=== PATIENT | female | born 1990 | race African-American/Black ===

== ENCOUNTER 2019-06-04 01:07 | Emergency (ER) | payer OTHER ==
[~2019-06-04] VITALS: Ht 157.5 cm; Wt 70.3 kg
[2019-06-04 01:30] VITALS: BP 146/93
--- NOTE | 2019-06-04 01:30 | NUR ---
PT C/O SOB, CHEST PAIN X4 DAYS. A/OX4 BREATHING UNLABORED AND SYMMETRICAL. 98% ON RA. +NAUSEA DENIES VOMITING AND DIARRHEA. WILMA NIS A 2/10 CHEST PAIN PRESSURE BUT "DOES NOT HURT MUCH". ERMD MADE AWARE OF STATUS. SIDE RAILS X2. PLACED ON MONITOR. ALLERGIES TO METHIMAZOLE PMH: ACTIVE THYROID MED HX: HYPERACTIVE THYROID, GOIDER-SORE THROAT, PRE-DIABETIC
--- NOTE | 2019-06-04 01:30 | NUR ---
PT AMBULATED TO BED #10
--- NOTE | 2019-06-04 01:48 | NUR ---
ERMD AT BEDSIDE EVALUATING PATIENT.
[2019-06-04] MEDS ORDERED: NACL 0.9% 1,000 ML IV ONE (02:05)
[2019-06-04] MEDS ORDERED: KETOROLAC 30 MG/ML VIAL IVP ONE (02:05)
[2019-06-04 02:26] LABS: BASOPHILS # (AUTO) 0.1 K/uL (0.00-0.22); BASOPHILS % (AUTO) 1.1 % (0.0-2.0); EOSINOPHILS # (AUTO) 0.2 K/uL (0-0.4); EOSINOPHILS % (AUTO) 4.1 % (0.0-4.0); HEMATOCRIT 40.6 % (36-48); HEMOGLOBIN 13.5 g/dL (12.0-16.0); LYMPHOCYTES % (AUTO) 16.7 % (20.5-51.1); MEAN CORPUSCULAR HEMOGLOBIN 26 pg (27-31); MEAN CORPUSCULAR HGB CONC 33 g/dL (33-37); MEAN CORPUSCULAR VOLUME 79.1 fL (80-94); MONOCYTES # (AUTO) 0.6 K/uL (0.8-1.0); MONOCYTES % (AUTO) 9.9 % (1.7-9.3); NEUTROPHILS # (AUTO) 4.1 K/uL (1.8-7.7); NEUTROPHILS % (AUTO) 68.2 % (42.2-75.2); PLATELET COUNT (AUTO) 273 K/uL (140-450); RED BLOOD CELL COUNT(AUTO) 5.13 MIL/uL (4.20-5.40); RED CELL DISTRIBUTION WIDTH 14.3 % (11.6-13.7)
--- NOTE | 2019-06-04 02:30 | NUR ---
PATIENT IS SITTING QUIETLY IN BED. VSS. WILL CONTINUE TO MONITOR.
[2019-06-04 02:49] LABS: ANION GAP 15.5 (8-16); CARBON DIOXIDE 23.3 mmol/L (21-32); CHLORIDE 105 mmol/L (98-107); CREATININE 0.6 mg/dL (0.6-1.3); GFR ARICAN-AMERICAN 153 mL/min (>90); GLUCOSE 132 mg/dL (74-106); POTASSIUM 3.8 mmol/L (3.5-5.1); SODIUM SERUM 140 mmol/L (136-145); UREA NITROGEN, BLOOD 11 mg/dL (7-18)
[2019-06-04 02:52] LABS: CREATINE KINASE MB 0.2 ng/mL (0-3.6)
[2019-06-04 03:04] LABS: ALBUMIN 3.4 g/dL (3.4-5.0); ASPARTATE AMINOTRANSFERASE 20 U/L (15-37); FREE T4 (FREE THYROXINE) 2.19 ng/dL (0.76-1.46); THYROID STIMULATING HORMONE < 0.01 uIU/mL (0.34-3.74); TOTAL BILIRUBIN 0.4 mg/dL (0.0-1.0)
--- NOTE | 2019-06-04 03:32 | NUR ---
PATIENT IS RESTING WITH EYES CLOSED. WILL CONTINUE TO MONITOR.
[2019-06-04 03:45] VITALS: BP 118/70
== END 2019-06-04 03:46 | disposition home or self-care (01) ==
LOC: MED 01:07
DX: R00.2 Palpitations (principal); Z86.39 Personal history of other endocrine, nutritional and metabolic disease; Z98.890 Other specified postprocedural states; Z88.8 Allergy status to other drugs, medicaments and biological substances
CPT/HCPCS: 36415; 71045; 80053; 82550; 82553; 84439; 84443; 84484; 85025; 96374; 99284; J1885; Q0092

== ENCOUNTER 2019-07-09 23:46 | Emergency (ER) | payer OTHER ==
[~2019-07-09] VITALS: Ht 157.5 cm; Wt 73.0 kg
[2019-07-09 23:50] VITALS: BP 116/78
--- NOTE | 2019-07-09 23:50 | NUR ---
TO BED # 04 AMBULATORY
--- NOTE | 2019-07-09 23:55 | NUR ---
28 Y/O FEMALE PRESENTS TO ED, C/O RIGHT SIDE WEAKNESS. PT STATES SYMPTOM STARTED YESTERDAY. PT DENIES ANY HX OF STROKE. NO FACIAL DROOP, SLURRED SPEECH OR EXTREMITY WEAKNESS. ABLE TO AMBULATE WITH STEADY GAIT. PT DENIES ANY HEADACHE OR DIZZINESS. PT DENIES ANY CHEST PAIN. PT VSS. ERMD AWARE. WILL CONTINUE TO MONITOR.
--- NOTE | 2019-07-10 00:48 | NUR ---
PT ASSISTED TO RESTROOM WITH STEADY GAIT
[2019-07-10 00:53] LABS: BASOPHILS # (AUTO) 0.1 K/uL (0.00-0.22); EOSINOPHILS # (AUTO) 0.4 K/uL (0-0.4); EOSINOPHILS % (AUTO) 5.3 % (0.0-4.0); HEMATOCRIT 43.9 % (36-48); HEMOGLOBIN 14.6 g/dL (12.0-16.0); LYMPHOCYTES # (AUTO) 2.2 K/uL (2.5-16.5); LYMPHOCYTES % (AUTO) 31.3 % (20.5-51.1); MEAN CORPUSCULAR HEMOGLOBIN 27 pg (27-31); MEAN CORPUSCULAR HGB CONC 33 g/dL (33-37); MONOCYTES # (AUTO) 0.5 K/uL (0.8-1.0); MONOCYTES % (AUTO) 7.6 % (1.7-9.3); NEUTROPHILS # (AUTO) 3.8 K/uL (1.8-7.7); NEUTROPHILS % (AUTO) 54.8 % (42.2-75.2); PLATELET COUNT (AUTO) 341 K/uL (140-450); RED BLOOD CELL COUNT(AUTO) 5.42 MIL/uL (4.20-5.40); RED CELL DISTRIBUTION WIDTH 14.6 % (11.6-13.7); WHITE BLOOD COUNT (AUTO) 6.9 K/uL (4.8-10.8)
[2019-07-10 01:11] LABS: CARBON DIOXIDE 25.6 mmol/L (21-32); CREATININE 0.8 mg/dL (0.6-1.3); POTASSIUM 3.6 mmol/L (3.5-5.1)
[2019-07-10 01:16] LABS: ALBUMIN 3.6 g/dL (3.4-5.0); TOTAL BILIRUBIN 0.4 mg/dL (0.0-1.0)
[2019-07-10 01:25] LABS: CREATINE KINASE MB 0.3 ng/mL (0-3.6)
--- NOTE | 2019-07-10 01:34 | NUR ---
PT TAKEN TO CT
[2019-07-10 02:01] VITALS: BP 123/66
--- NOTE | 2019-07-10 02:01 | NUR ---
Patient discharged with v/s stable. Written and verbal after care instructions given and explained. Patient verbalized understanding. Ambulatory with steady gait. All questions addressed prior to discharge. Advised to follow up with PMD. DR. ROBLES D/C PT
== END 2019-07-10 02:01 | disposition home or self-care (01) ==
LOC: MED 23:46
DX: E05.90 Thyrotoxicosis, unspecified without thyrotoxic crisis or storm (principal); F41.9 Anxiety disorder, unspecified; Z88.8 Allergy status to other drugs, medicaments and biological substances
CPT/HCPCS: 36415; 70450; 71045; 80053; 81025; 82550; 82553; 83880; 84443; 84484; 85025; 93005; 99284; Q0092

== ENCOUNTER 2019-07-20 11:54 | Emergency (ER) | payer OTHER ==
[~2019-07-20] VITALS: Ht 157.5 cm; Wt 74.8 kg
[2019-07-20 12:01] VITALS: BP 127/94
--- NOTE | 2019-07-20 12:07 | NUR ---
ASSISTED PT TO WAIT IN THE LOBBY.
[2019-07-20 13:22] LABS: BASOPHILS # (AUTO) 0.1 K/uL (0.00-0.22); BASOPHILS % (AUTO) 1.2 % (0.0-2.0); EOSINOPHILS # (AUTO) 0.3 K/uL (0-0.4); EOSINOPHILS % (AUTO) 6.1 % (0.0-4.0); LYMPHOCYTES # (AUTO) 1.9 K/uL (2.5-16.5); LYMPHOCYTES % (AUTO) 39.4 % (20.5-51.1); MEAN CORPUSCULAR HEMOGLOBIN 27 pg (27-31); MEAN CORPUSCULAR HGB CONC 33 g/dL (33-37); MEAN CORPUSCULAR VOLUME 82.2 fL (80-94); MONOCYTES # (AUTO) 0.3 K/uL (0.8-1.0); MONOCYTES % (AUTO) 5.9 % (1.7-9.3); NEUTROPHILS # (AUTO) 2.3 K/uL (1.8-7.7); NEUTROPHILS % (AUTO) 47.4 % (42.2-75.2); PLATELET COUNT (AUTO) 333 K/uL (140-450); RED BLOOD CELL COUNT(AUTO) 5.47 MIL/uL (4.20-5.40); RED CELL DISTRIBUTION WIDTH 15.7 % (11.6-13.7); WHITE BLOOD COUNT (AUTO) 4.8 K/uL (4.8-10.8)
[2019-07-20 13:54] LABS: ALBUMIN 3.7 g/dL (3.4-5.0); ANION GAP 10.7 (8-16); CREATININE 0.9 mg/dL (0.6-1.3); FREE T4 (FREE THYROXINE) 0.24 ng/dL (0.76-1.46); POTASSIUM 4.7 mmol/L (3.5-5.1); THYROID STIMULATING HORMONE 5.4 uIU/mL (0.34-3.74); TOTAL BILIRUBIN 0.5 mg/dL (0.0-1.0)
--- NOTE | 2019-07-20 14:11 | NUR ---
28 Y/O FEMALE PRESENTS WITH RIGHT SIDE NUMBNESS TINGLINESS/ RIGHT SIDED FACIAL DROOP. CMS +. FULL ROM BILATERAL UPPER/LOWER EXTREMITIES. NO WEAKNESS ASSOCIATED WITH NUMBESS. CAP REFILL<3. DENIES SOB, CP. NO CHANGES IN VISION/HEARING/SPEECH. RESPIRATIONS EVEN AND UNLABORED. AAOX3. PMH: HYPERTHYROIDISM NKA
[2019-07-20 14:50] VITALS: BP 127/94
--- NOTE | 2019-07-20 14:51 | NUR ---
Patient discharged with v/s stable. Written and verbal after care instructions given and explained. Patient alert, oriented and verbalized understanding of instructions. Ambulatory with steady gait. All questions addressed prior to discharge. ID band removed. Patient advised to follow up with PMD. Opportunity to ask questions provided and answered.
== END 2019-07-20 14:51 | disposition home or self-care (01) ==
LOC: MED 11:54
DX: E05.90 Thyrotoxicosis, unspecified without thyrotoxic crisis or storm (principal); Z98.890 Other specified postprocedural states
CPT/HCPCS: 36415; 70450; 80053; 81002; 81025; 84439; 84443; 85025; 99284

== ENCOUNTER 2019-09-11 00:58 | Observation (INO) | payer OTHER ==
[~2019-09-11] VITALS: Ht 157.5 cm; Wt 72.6 kg
[2019-09-11 01:04] VITALS: BP 139/93
--- NOTE | 2019-09-11 01:10 | NUR ---
PT TAKEN TO BED 2
--- NOTE | 2019-09-11 01:12 | NUR ---
PT 29 Y/O FEMALE BIB SELF FOR C/O CHEST PRESSURE WITH 2/10 PAIN NON-RADIATING X 1 HOUR. PT STATES, "IT COMES AND GOES NOW FOR A FEW WEEKS." PT STATES PAIN DOES NOT RADIATE AND PAIN IS STERNAL. "IT FEELS MORE LIKE A PRESURE THEN PAIN." PT SKIN IS WARM AND DRY. RESPIRATIONS ARE EVEN AND UNLABORED. AFEBRILE. DENIES COUGH. DENIES N/V/D. PT ON MONITOR. VSS. PT AAO X4. MEDHX: HYPERTHYROID, ANXIETY ALLERGIES: NKA
--- NOTE | 2019-09-11 01:22 | NUR ---
Dr. Almaguer examining patient.
--- NOTE | 2019-09-11 01:28 | NUR ---
LAB AT BEDSIDE.
--- NOTE | 2019-09-11 01:36 | NUR ---
EKG BEING DONE AT BEDSIDE BY EMT.
[2019-09-11 01:39] LABS: BASOPHILS # (AUTO) 0.2 K/uL (0.00-0.22); BASOPHILS % (AUTO) 1.7 % (0.0-2.0); EOSINOPHILS # (AUTO) 0.4 K/uL (0-0.4); EOSINOPHILS % (AUTO) 4.3 % (0.0-4.0); HEMATOCRIT 41.9 % (36-48); HEMOGLOBIN 13.8 g/dL (12.0-16.0); LYMPHOCYTES # (AUTO) 2.6 K/uL (2.5-16.5); LYMPHOCYTES % (AUTO) 28.3 % (20.5-51.1); MEAN CORPUSCULAR HEMOGLOBIN 29 pg (27-31); MEAN CORPUSCULAR HGB CONC 33 g/dL (33-37); MEAN CORPUSCULAR VOLUME 86.6 fL (80-94); MONOCYTES # (AUTO) 0.8 K/uL (0.8-1.0); MONOCYTES % (AUTO) 8.8 % (1.7-9.3); NEUTROPHILS # (AUTO) 5.2 K/uL (1.8-7.7); NEUTROPHILS % (AUTO) 56.9 % (42.2-75.2); PLATELET COUNT (AUTO) 314 K/uL (140-450); RED BLOOD CELL COUNT(AUTO) 4.84 MIL/uL (4.20-5.40); RED CELL DISTRIBUTION WIDTH 13.8 % (11.6-13.7); WHITE BLOOD COUNT (AUTO) 9.1 K/uL (4.8-10.8)
[2019-09-11 01:55] LABS: ALBUMIN 3.8 g/dL (3.4-5.0); ANION GAP 12.6 (8-16); CREATININE 0.8 mg/dL (0.6-1.3); POTASSIUM 3.6 mmol/L (3.5-5.1)
[2019-09-11 02:03] LABS: CHOL/HDL RATIO 3.4 (1-4.5); CREATINE KINASE MB 0.2 ng/mL (0-3.6); FREE T4 (FREE THYROXINE) 1.24 ng/dL (0.76-1.46); THYROID STIMULATING HORMONE 0.02 uIU/mL (0.34-3.74)
--- NOTE | 2019-09-11 03:06 | NUR ---
PT RESPONSIVE TO VERBAL STIMULI. VSS. RESPIRATIONS ARE EVEN AND UNLABORED. PAIN 0/10. SKIN IS WARM AND DRY TO TOUCH.
--- NOTE | 2019-09-11 04:06 | NUR ---
Dr. Almaguer re-examining patient.
[2019-09-11] MEDS ORDERED: ALBUTEROL 0.083% 2.5 MG/3 ML NEBU INH PRN (04:25)
[2019-09-11] MEDS ORDERED: ACETAMINOPHEN 325 MG TAB PO PRN (04:25)
[2019-09-11] MEDS ORDERED: ONDANSETRON 4 MG/2 ML VIAL IVP PRN (04:25)
[2019-09-11] MEDS ORDERED: MORPHINE SULFATE 4 MG/ML SYR IVP PRN (04:25)
[2019-09-11] MEDS ORDERED: HYDROcodone/APAP 5/325 MG 1 TAB TAB PO PRN (04:25)
[2019-09-11] MEDS ORDERED: PROP1VIA PO (04:41)
--- NOTE | 2019-09-11 05:10 | NUR ---
Patient will be admitted to care of . Admited to TELE. Will go to room 105A. Belongings list completed. Report to CAMERON SORENSON.
[2019-09-11 05:20] VITALS: BP 134/79
--- NOTE | 2019-09-11 05:20 | NUR ---
RECEIVED PT FROM ER , REPORT GIVEN AT BED SIDE, PT IS AAOX4 AMBULATORY HL ON RT AC GAUGE # 22 PATENT, ON TELEMETRY SR, NOT CHEST PAIN AT THIS TIME, MRSA NARES PROTOCOL SWAB NARES TAKEN AND SENT OT LABSPT IS ORIENTED TOTHE FLOOR CALL LIGHT WITHIN REACH
--- NOTE | 2019-09-11 06:45 | NUR ---
PT WILL BE ENDORSED TO DAY SHIFT NURSE FOR CONTINUE OF CARE , PT ON TELEMETRY SR
--- NOTE | 2019-09-11 07:36 | NUR ---
RECEIVED REPORT FROM NAVAL ENGINEER RN FOR CONTINUITY OF CARE. PT IS AAOX4, COOPERATIVE AND ABLE TO MAKE NEEDS KNOWN. PT ON RA, SATING 96%. PT AMBULATORY. SKIN INSTANT. IV IN THE R AC 22G SL PER MD ORDERS. NO COMPLAINTS OF CHEST PAIN. DISCUSSED POC WITH PT AND PT VERBALIZED UNDERSTANDING. BOARD UPDATED. SAFETY MEASURES IN PLACE. WILL ROUND FREQUENTLY THROUGHOUT THE SHIFT.
[2019-09-11 08:00] VITALS: BP 131/77
--- NOTE | 2019-09-11 08:24 | NUR ---
ADMINISTERED MORNING MEDS. PT TOLERATED WELL. ALL NEEDS MET. WILL CONTINUE TO ROUND ON PT.
--- NOTE | 2019-09-11 08:41 | NUR ---
PATIENT HAS BEEN SCREENED AND CATEGORIZED MODERATE NUTRITION RISK. PATIENT WILL BE SEEN WITHIN 3-5 DAYS OF ADMISSION. 09/13/19 09/15/[address]
--- NOTE | 2019-09-11 11:42 | NUR ---
PT RESTING IN BED. ALL NEEDS ROBERT. WILL CONTINUE TO ROUND ON PT.
[2019-09-11] MEDS ORDERED: INDO-323 PO (11:57)
[2019-09-11 12:00] VITALS: BP 110/55
[2019-09-11] MEDS: INDOMETHACIN 25 MG CAP PO SCH ×2 (12:47→21:00)
--- NOTE | 2019-09-11 13:21 | NUR ---
PT RESTING IN BED. ALL NEEDS MET. WILL CONTINUE TO ROUND ON PT.
--- NOTE | 2019-09-11 15:13 | NUR ---
DC PLANNIN YRS OLD FEMALE PT WAS ADMITTED FROM HOME WITH A DX OF CHEST PAIN . PT HAS A HX OF HYPER THYROIDISM. CXRAY (-) EKG NSR. STABLE VITALS , TROPONIN(-) X3 , LABS WNL. ORDERED ECHO , DC PLAN PER ECHO RESULT. CM TO FOLLOW Addendum: 09/12/19 at 1119 by Kasey Parker FOR DC TODAY, NO NEEDS.
--- NOTE | 2019-09-11 15:19 | NUR ---
PT ASLEEP. ALL NEEDS MET. WILL CONTINUE TO ROUND ON PT.
[2019-09-11 16:00] VITALS: BP 98/57
--- NOTE | 2019-09-11 17:25 | NUR ---
PT RESTING IN BED TALKING ON THE MITA. ALL NEEDS MET. WILL CONTINUE TO ROUND ON PT.
--- NOTE | 2019-09-11 19:25 | NUR ---
ENDORSED PT TO CORPORATE TAX MANAGER FOR CONTINUITY OF CARE. PT IN STABLE CONDITION AT THIS TIME.
--- NOTE | 2019-09-11 19:26 | NUR ---
RECEIVED ENDORSEMENT AT BEDSIDE FROM AM SHIFT RN. PATIENT IS AOX3. DENIES PAIN. NO SOB NOTED. NOTED RAC G22. INTACT. PATIENT IS COMFORTABLE. PLAN OF CARE WAS DISCUSSED WITH THE PATIENT AND THE AM NURSE. WAITING FOR THE ECHO RESULT. CALL LIGHT WITHIN REACH.
[2019-09-11 20:00] VITALS: BP 108/66
--- NOTE | 2019-09-11 21:33 | NUR ---
INDOCIN 50MG IS NOT AVAILABLE. MED IS NOT ADMINISTERED. EXPLAINED TO PATIENT. NO SOB NOTED.
--- NOTE | 2019-09-11 21:54 | NUR ---
EXPLAINED TO PATIENT THAT THE CRISIS INTERVENTION COUNSELOR WILL READ THE ECHO RESULT TOMORROW AND THAT SHE WILL NOT BE D/C TONIGHT. PATIENT VERBALIZED UNDERSTANDING AND OK WITH IT. DR. SIMMONS IS AWARE. CHARGE NURSE NESTOR IS AWARE. CALL LIGHT WITHIN REACH AT ALL TIMES.
--- NOTE | 2019-09-11 21:58 | NUR ---
PT.HAD ORDER FOR D/C IF ECHO DIDN'T SHOW [place].ECHO DONE AROUND 12 NOON AND RESULT IS NOT READY CHECKED W/NAT RT IF FIND ANY RESULT IN THEIR OFFICE.SHE DIDN'T FIND ANY RESULT.CALLED THAT IS SALES OPERATIONS ASSOCIATE FOR GROUP.HE SAID OK.SYED SORENSON EXPLAINED FOR PT THAT CAN NOT GO HOME TONIGHT.PT VERBALIZED UNDERSTANDING.
--- NOTE | 2019-09-11 22:30 | NUR ---
PATIENT C/O CHEST PAIN 1-07/30. PATIENT LYING IN BED STATES SHE'S FEELING LIKE WANT TO PASS OUT. V/S/ BP 144/82, HR 100, 22 20 O2 SAT 100%. ENCOURAGES PATIENT TO DO RELAXATION TECHNIQUE, DEEP BREATHING. ADVISED TO TURN SLOWLY WHEN MOVING TO BED. INFORMED PATIENT SCHEDULER DR. SIMMONS OF THE PATIENT COMPLAINED. NO NEW ORDER. MONITORED PATIENT FREQUENTLY. INFORMED TO PRESS THE CALL LIGHT IN CASE OF ANYTHING. CONTINUE TO MONITOR.
[2019-09-12] VITALS: BP 154/73
--- NOTE | 2019-09-12 00:05 | NUR ---
PATIENT IS SLEEPING. NO SOB NOTED. RESPIRATION EVEN AND UNLABORED. WILL CONTINUE TO MONITOR.
--- NOTE | 2019-09-12 03:10 | NUR ---
PATIENT IS SLEEPING. RESPIRATION EVEN AND UNLABORED. NO SOB NOTED.
[2019-09-12 04:00] VITALS: BP 110/66
[2019-09-12 06:07] LABS: T4 (THYROXINE) 9.1 ug/dL (4.5-12.0)
--- NOTE | 2019-09-12 07:19 | NUR ---
ENDORSE PATIENT TO AM SHIFT RN FOR CONTINUITY OF CARE
--- NOTE | 2019-09-12 07:20 | NUR ---
RECEIVED ENDORSEMENT FROM ALL AROUND PRESSER NURSE. PT IN BED. AOX4, VERBAL IN MAORI, NO C/O PAIN, NO SOB, ON ROOM AIR, AMBULATORY, NKA, FULL CODE, SKIN INTACT. WITH IV ON R AC 22G ON SALINE LOCK. CALL LIGHT WITHIN REACH. WILL CONT TO MONITOR
[2019-09-12 07:38] LABS: BASOPHILS # (AUTO) 0.1 K/uL (0.00-0.22); BASOPHILS % (AUTO) 1.5 % (0.0-2.0); EOSINOPHILS # (AUTO) 0.2 K/uL (0-0.4); EOSINOPHILS % (AUTO) 3.1 % (0.0-4.0); HEMATOCRIT 39.6 % (36-48); HEMOGLOBIN 13.1 g/dL (12.0-16.0); LYMPHOCYTES # (AUTO) 2.3 K/uL (2.5-16.5); LYMPHOCYTES % (AUTO) 34.5 % (20.5-51.1); MEAN CORPUSCULAR HEMOGLOBIN 29 pg (27-31); MEAN CORPUSCULAR HGB CONC 33 g/dL (33-37); MEAN CORPUSCULAR VOLUME 86.3 fL (80-94); MONOCYTES # (AUTO) 0.6 K/uL (0.8-1.0); MONOCYTES % (AUTO) 8.8 % (1.7-9.3); NEUTROPHILS # (AUTO) 3.4 K/uL (1.8-7.7); NEUTROPHILS % (AUTO) 52.1 % (42.2-75.2); PLATELET COUNT (AUTO) 294 K/uL (140-450); RED BLOOD CELL COUNT(AUTO) 4.59 MIL/uL (4.20-5.40); RED CELL DISTRIBUTION WIDTH 13.8 % (11.6-13.7); WHITE BLOOD COUNT (AUTO) 6.5 K/uL (4.8-10.8)
[2019-09-12 07:44] LABS: ANION GAP 11.4 (8-16); CARBON DIOXIDE 27.5 mmol/L (21-32); CREATININE 0.7 mg/dL (0.6-1.3); POTASSIUM 3.9 mmol/L (3.5-5.1)
[2019-09-12 07:54] LABS: MAGNESIUM 1.9 mg/dL (1.8-2.4); PHOSPHORUS 4.3 mg/dL (2.5-4.9)
[2019-09-12 08:00] VITALS: BP 92/68
[2019-09-12] MEDS: INDOMETHACIN 25 MG CAP PO SCH (08:53)
--- NOTE | 2019-09-12 08:53 | NUR ---
PT WAS GIVEN THE SCHEDULED AM MEDICATION AND TOLERATED IT. WILL MONITOR PT.
[2019-09-12 12:00] VITALS: BP 117/71
--- NOTE | 2019-09-12 12:00 | NUR ---
SPOKE TO DR. TURPIN AND SAID THAT PT CAN BE DISCHARGED TO HOME AND INFORMED PT THAT HE WILL JUST SEND A MESSAGE TO WINDOWS SERVER SPECIALIST REGARDING PT'S ECHOCARDIOGRAM RESULT.
--- NOTE | 2019-09-12 12:55 | NUR ---
DISCHARGED PT TO HOME, ACCOMPANIED TO LOBBY AND PICKED UP BY YAMIL, DISCHARGED TEACHINGS AND INSTRUCTIONS REGARDING APPOINTMENT SCHEDULE WAS GIVEN TO PT AND PT VERBALIZED UNDERSTANDING, IV LINE AND ARM BAND REMOVED, PT DENIES PAIN AND IS STABLE AT THIS TIME.
== END 2019-09-12 12:57 | disposition home or self-care (01) ==
LOC: MED 00:58 → INTOOBSV 04:27 → MTU 04:27
PROVIDERS: ADMIT Internal Medicine Pulmonary Disease; ATTEND Internal Medicine Pulmonary Disease
DX: R07.89 Other chest pain (principal); E05.90 Thyrotoxicosis, unspecified without thyrotoxic crisis or storm; Z79.899 Other long term (current) drug therapy
CPT/HCPCS: 36415; 71045; 80048; 80053; 80061; 82550; 82553; 83735; 83880; 84100; 84436; 84439; 84443; 84479; 84484; 84702; 85025; 85379; 85651; 86140; 87081; 93005; 96374; 99291; G0378; J2270; Q0092

== ENCOUNTER 2019-10-07 01:10 | Emergency (ER) | payer OTHER ==
[~2019-10-07] VITALS: Ht 157.5 cm; Wt 74.6 kg
[~2019-10-07 01:10] MED LIST: INDO-323 PO; PROP1VIA PO
[2019-10-07 01:17] VITALS: BP 149/91
[2019-10-07] MEDS ORDERED: NACL 0.9% 500 ML IV ONE (01:30)
[2019-10-07] MEDS ORDERED: ASPIRIN 81 MG TAB.CHEW PO ONE (01:30)
[2019-10-07] MEDS ORDERED: KETOROLAC 30 MG/ML VIAL IVP ONE (01:40)
[2019-10-07] MEDS ORDERED: METOPROLOL 5 MG/5 ML VIAL IVP ONE (01:40)
--- NOTE | 2019-10-07 01:55 | NUR ---
29 YEAR OLD FEMALE COMPLAINS OF NONRADIATING BURNING CHEST PAIN X 2 WEEKS. PATIENT ALSO COMPLAINS OF SOB. LUNGS CTABL, SPO2 99%, RR 18. PATIENT AOX4, BREATHING EVEN AND UNLABORED, SKIN WARM AND DRY. BED IN LOWEST POSITION, LOCKED, BED RAIL UPX1. PATIENT PLACED ON MONITOR, EMT AT BEDSIDE WITH EKG. ERMD MADE AWARE OF PT STATUS. PMH - HYPERTHYROIDISM ALLERGIES - NKA
[2019-10-07 02:05] LABS: BASOPHILS % (AUTO) 0.6 % (0.0-2.0); EOSINOPHILS # (AUTO) 0.4 K/uL (0-0.4); EOSINOPHILS % (AUTO) 5.3 % (0.0-4.0); HEMOGLOBIN 13.1 g/dL (12.0-16.0); LYMPHOCYTES # (AUTO) 2.2 K/uL (2.5-16.5); LYMPHOCYTES % (AUTO) 31.5 % (20.5-51.1); MEAN CORPUSCULAR HEMOGLOBIN 29 pg (27-31); MEAN CORPUSCULAR HGB CONC 33 g/dL (33-37); MEAN CORPUSCULAR VOLUME 87.1 fL (80-94); MONOCYTES # (AUTO) 0.7 K/uL (0.8-1.0); MONOCYTES % (AUTO) 10.5 % (1.7-9.3); NEUTROPHILS # (AUTO) 3.6 K/uL (1.8-7.7); NEUTROPHILS % (AUTO) 52.1 % (42.2-75.2); PLATELET COUNT (AUTO) 296 K/uL (140-450); RED BLOOD CELL COUNT(AUTO) 4.59 MIL/uL (4.20-5.40); RED CELL DISTRIBUTION WIDTH 12.5 % (11.6-13.7); WHITE BLOOD COUNT (AUTO) 6.9 K/uL (4.8-10.8)
[2019-10-07 02:21] LABS: PROTHROMBIN TIME 14.6 secs (10.8-13.4)
[2019-10-07 02:36] LABS: ALBUMIN 3.2 g/dL (3.4-5.0); ANION GAP 10.1 (8-16); CARBON DIOXIDE 28.7 mmol/L (21-32); CREATININE 0.8 mg/dL (0.6-1.3); POTASSIUM 3.8 mmol/L (3.5-5.1); TOTAL BILIRUBIN 0.4 mg/dL (0.0-1.0)
--- NOTE | 2019-10-07 02:55 | NUR ---
Dr. Rodriges examining patient.
[2019-10-07 03:10] VITALS: BP 124/71
--- NOTE | 2019-10-07 03:10 | NUR ---
Patient discharged with v/s stable. Written and verbal after care instructions about chest pain (nonspecific) and gastritis given and explained. Patient alert, oriented and verbalized understanding of instructions. Ambulatory with steady gait. All questions addressed prior to discharge. ID band removed. Patient advised to follow up with PMD. Rx of tramadol, prilosec given. Patient educated on indication of medication including possible reaction and side effects. Opportunity to ask questions provided and answered.
== END 2019-10-07 03:10 | disposition home or self-care (01) ==
LOC: MED 01:10
DX: K29.70 Gastritis, unspecified, without bleeding (principal); R07.9 Chest pain, unspecified; Z79.899 Other long term (current) drug therapy
CPT/HCPCS: 36415; 71045; 80053; 84484; 85025; 85610; 85730; 96374; 96375; 99285; J1885; J3490; J7030; Q0092; 99284

== ENCOUNTER 2019-11-29 01:51 | Emergency (ER) | payer OTHER ==
[~2019-11-29] VITALS: Ht 157.5 cm; Wt 74.8 kg
--- NOTE | 2019-11-29 02:09 | NUR ---
AMBULATED TO ER BED 6
[2019-11-29 02:11] VITALS: BP 124/85
--- NOTE | 2019-11-29 02:15 | NUR ---
29F PRESENTS TO ED WITH C/O 10/10 STERNAL CHEST PAIN THAT STARTED X 45 MINS. PT NOW STATES CHEST PAIN RELIEF AT 3/10 PAIN. REPORTS NAUSEA. ECG PERFORMED AND RESULTS ARE SR AT 79BPM. RESPIRATIONS EVEN AND UNLABORED. HEART SOUNDS S1S2 PRESENT THROUGHOUT. PT PLACED ON CARDIAC MONITORING. HOB ELEVATED. BED LOWEST AND LOCKED. RAILS X 2. PMHX: HYPERTHYROIDISM, GERD, PERICARDITIS, ASTHMA RX: PROPANOLOL, METHIMAZOLE NKA NEGATIVE FOR COVID SCREENING PT WEARING MASK
--- NOTE | 2019-11-29 02:23 | NUR ---
PT AMBULATED TO RESTROOM WITH STEADY GAIT
[2019-11-29 03:50] VITALS: BP 122/88
== END 2019-11-29 03:50 | disposition home or self-care (01) ==
LOC: MED 01:51
DX: R07.9 Chest pain, unspecified (principal); K21.9 Gastro-esophageal reflux disease without esophagitis; E07.9 Disorder of thyroid, unspecified; Z79.899 Other long term (current) drug therapy; Z98.890 Other specified postprocedural states; Z86.79 Personal history of other diseases of the circulatory system
CPT/HCPCS: 93005; 99283

== ENCOUNTER 2020-03-17 23:15 | Emergency (ER) | payer OTHER ==
[~2020-03-17] VITALS: Ht 160 cm; Wt 81.6 kg
[2020-03-17 23:23] VITALS: BP 162/95
--- NOTE | 2020-03-17 23:27 | NUR ---
PT TAKEN TO BED 3
--- NOTE | 2020-03-17 23:38 | NUR ---
PT STARTED HAVING MIDSTERNAL CHEST PAIN RADIATING INTO RIGHT SIDE OF HER CHEST 3 DAYS AGO. IT HAS BEEN CONSTANT, WITH NO RELIEF. PAIN DOES NOT RADIATE INTO ARMS, NECK, OR SHOULDERS. DESCRIBES PAIN BURNING AND DULL. HAS HAD NAUSEA TODAY BUT NO VOMITING OR DIARRHEA. DENIES SOB, AFEBRILE. PT HAS HX OF GERD. BED IN LOWEST POSITION AND SIDERAIL UP X 1 NKA HX - GERD, HYPERTHYROID
--- NOTE | 2020-03-17 23:46 | NUR ---
PT PLACED ON BEDSIDE MONITOR
--- NOTE | 2020-03-18 00:22 | NUR ---
X-Ray at bedside.
--- NOTE | 2020-03-18 00:29 | NUR ---
Dr. Hooper examining patient.
[2020-03-18] MEDS ORDERED: ACETAMINOPHEN EXTRA STRENGTH 500 MG TAB PO ONE (01:00)
[2020-03-18] MEDS ORDERED: ALUMINUM HYD/MAG/SIMETHICONE 30 ML UDC PO ONE (01:00)
[2020-03-18 01:08] VITALS: BP 116/81
--- NOTE | 2020-03-18 01:08 | NUR ---
Patient discharged with v/s stable. Written and verbal after care instructions given and explained. Patient alert, oriented and verbalized understanding of instructions. Ambulatory with steady gait. All questions addressed prior to discharge. ID band removed. Patient advised to follow up with PMD. Rx of PEPCID AND MAALOX given. Patient educated on indication of medication including possible reaction and side effects. Opportunity to ask questions provided and answered.
== END 2020-03-18 01:08 | disposition home or self-care (01) ==
LOC: MED 23:15
DX: K21.9 Gastro-esophageal reflux disease without esophagitis (principal); R12 Heartburn; I31.9 Disease of pericardium, unspecified; J45.909 Unspecified asthma, uncomplicated; E07.9 Disorder of thyroid, unspecified; Z79.899 Other long term (current) drug therapy
CPT/HCPCS: 71045; 93005; 99283; Q0092

== ENCOUNTER 2020-05-31 22:01 | Emergency (ER) | payer OTHER ==
[~2020-05-31] VITALS: Ht 157.5 cm; Wt 81.6 kg
[2020-05-31 22:15] VITALS: BP 138/83
--- NOTE | 2020-05-31 22:18 | NUR ---
TO LOBBY A/W BED AMBULATORY
[2020-05-31 22:22] VITALS: BP 138/83
--- NOTE | 2020-05-31 23:00 | NUR ---
PATIENT CALLED TO BE SEEN BY ERMD , NO RESPONSE PATIENT LEFT WITHOUT BEING SEEN BY DR. FARNSWORTH. NO FURTHER CARE PROVIDED FOR PATIENT.
--- NOTE | 2020-05-31 23:05 | NUR ---
CALLED FOR THE SECOND TIME , NO RESPONSE
--- NOTE | 2020-05-31 23:10 | NUR ---
CALLED FOR THE THIRD TIME, NO RESPONSE
== END 2020-05-31 23:00 | disposition left against medical advice (07) ==
LOC: MED 22:01
DX: F41.0 Panic disorder [episodic paroxysmal anxiety] (principal); Z53.21 Procedure and treatment not carried out due to patient leaving prior to being seen by health care provider

== ENCOUNTER 2020-06-07 23:39 | Emergency (ER) | payer OTHER ==
[~2020-06-07] VITALS: Ht 157.5 cm; Wt 81.6 kg
[2020-06-07 23:44] VITALS: BP 137/90
--- NOTE | 2020-06-07 23:47 | NUR ---
TO LOBBY A/W BED AMBULATORY
--- NOTE | 2020-06-08 00:50 | NUR ---
SEEN AND EXAMINED BY MILTON WITH ORDERS AND CARRIED OUT
--- NOTE | 2020-06-08 01:21 | NUR ---
EKG PERFORMED AT PHLEBOTOMY CHAIR. EKG READS SINUS RHYTHM @ 88
[2020-06-08 01:44] LABS: BASOPHILS # (AUTO) 0.1 K/uL (0.00-0.22); BASOPHILS % (AUTO) 0.7 % (0.0-2.0); EOSINOPHILS # (AUTO) 0.3 K/uL (0-0.4); HEMATOCRIT 43.1 % (36-48); HEMOGLOBIN 14.3 g/dL (12.0-16.0); LYMPHOCYTES # (AUTO) 2.4 K/uL (2.5-16.5); LYMPHOCYTES % (AUTO) 24.2 % (20.5-51.1); MEAN CORPUSCULAR HEMOGLOBIN 28 pg (27-31); MEAN CORPUSCULAR HGB CONC 33 g/dL (33-37); MEAN CORPUSCULAR VOLUME 83.9 fL (80-94); MONOCYTES # (AUTO) 0.6 K/uL (0.8-1.0); MONOCYTES % (AUTO) 6.1 % (1.7-9.3); NEUTROPHILS # (AUTO) 6.4 K/uL (1.8-7.7); PLATELET COUNT (AUTO) 346 K/uL (140-450); RED BLOOD CELL COUNT(AUTO) 5.14 MIL/uL (4.20-5.40); RED CELL DISTRIBUTION WIDTH 13.6 % (11.6-13.7); WHITE BLOOD COUNT (AUTO) 9.7 K/uL (4.8-10.8)
--- NOTE | 2020-06-08 01:50 | NUR ---
RE EVALUATED BY ERMD.
[2020-06-08 02:01] LABS: ALBUMIN 3.7 g/dL (3.4-5.0); ANION GAP 13.3 (8-16); CARBON DIOXIDE 25.7 mmol/L (21-32); CREATININE 0.9 mg/dL (0.6-1.3); TOTAL BILIRUBIN 0.3 mg/dL (0.0-1.0)
--- NOTE | 2020-06-08 02:15 | NUR ---
ALL RESULTS BACK AND NOTED BY ERMD AND FOR D/C
[2020-06-08 02:25] VITALS: BP 122/78
--- NOTE | 2020-06-08 02:25 | NUR ---
Patient discharged with v/s stable. Written and verbal after care instructions given and explained. Patient verbalized understanding. Ambulatory with steady gait. All questions addressed prior to discharge. Advised to follow up with PMD.
== END 2020-06-08 02:25 | disposition home or self-care (01) ==
LOC: MED 23:39
DX: R00.2 Palpitations (principal); J45.909 Unspecified asthma, uncomplicated; K21.9 Gastro-esophageal reflux disease without esophagitis; E05.90 Thyrotoxicosis, unspecified without thyrotoxic crisis or storm; Z79.1 Long term (current) use of non-steroidal anti-inflammatories (NSAID); Z79.899 Other long term (current) drug therapy
CPT/HCPCS: 36415; 71045; 80053; 84484; 85025; 93005; 99285

== ENCOUNTER 2020-08-15 23:15 | Emergency (ER) | payer OTHER ==
[~2020-08-15] VITALS: Ht 157.5 cm; Wt 81.6 kg
--- NOTE | 2020-08-15 23:22 | NUR ---
PT AMBULATORY TO BED #2
[2020-08-15 23:26] VITALS: BP 131/86
--- NOTE | 2020-08-15 23:30 | NUR ---
PATIENT PRESENTS TO ED WITH C/O PALPITATIONS, POSSIBLE PANIC ATTACK . PT STATES HX OF THYROID, "I'M AFRAID THIS MIGHT BE PART OF THE PROBLEM". DENIES N/V/D; SKIN IS PINK/WARM/DRY; AAOX4 WITH EVEN AND STEADY GAIT; LUNGS CLEAR BL; HR EVEN AND TACHYCARDIC; PT DENIES ANY FEVER, CP, SOB, OR COUGH AT THIS TIME; VSS; PATIENT POSITIONED FOR COMFORT; HOB ELEVATED; BEDRAILS UP X2; BED DOWN. ER MD MADE AWARE OF PT STATUS.
--- NOTE | 2020-08-16 01:00 | NUR ---
RAD AT BEDSIDE
[2020-08-16 01:13] LABS: BASOPHILS % (AUTO) 0.6 % (0.0-2.0); EOSINOPHILS # (AUTO) 0.3 K/uL (0-0.4); EOSINOPHILS % (AUTO) 4.3 % (0.0-4.0); HEMATOCRIT 40.2 % (36-48); LYMPHOCYTES # (AUTO) 1.7 K/uL (2.5-16.5); LYMPHOCYTES % (AUTO) 24.1 % (20.5-51.1); MEAN CORPUSCULAR HEMOGLOBIN 27 pg (27-31); MEAN CORPUSCULAR HGB CONC 32 g/dL (33-37); MEAN CORPUSCULAR VOLUME 83.3 fL (80-94); MONOCYTES # (AUTO) 0.5 K/uL (0.8-1.0); MONOCYTES % (AUTO) 7.8 % (1.7-9.3); NEUTROPHILS # (AUTO) 4.4 K/uL (1.8-7.7); NEUTROPHILS % (AUTO) 63.2 % (42.2-75.2); PLATELET COUNT (AUTO) 316 K/uL (140-450); RED BLOOD CELL COUNT(AUTO) 4.82 MIL/uL (4.20-5.40); RED CELL DISTRIBUTION WIDTH 13.8 % (11.6-13.7); WHITE BLOOD COUNT (AUTO) 6.9 K/uL (4.8-10.8)
[2020-08-16 01:38] LABS: ALBUMIN 3.3 g/dL (3.4-5.0); ANION GAP 12.2 (8-16); CARBON DIOXIDE 24.4 mmol/L (21-32); CREATININE 0.9 mg/dL (0.6-1.3); POTASSIUM 3.6 mmol/L (3.5-5.1); THYROID STIMULATING HORMONE 7.65 uIU/mL (0.34-3.74); TOTAL BILIRUBIN 0.2 mg/dL (0.0-1.0)
--- NOTE | 2020-08-16 02:30 | NUR ---
IS MORE COMFORTABLE. CM = SR WITHOUT ECTOPY
[2020-08-16 02:43] VITALS: BP 128/74
== END 2020-08-16 02:43 | disposition home or self-care (01) ==
LOC: MED 23:15
DX: E03.9 Hypothyroidism, unspecified (principal); E11.9 Type 2 diabetes mellitus without complications; R55 Syncope and collapse; J45.909 Unspecified asthma, uncomplicated; I51.9 Heart disease, unspecified; K21.9 Gastro-esophageal reflux disease without esophagitis; Z79.899 Other long term (current) drug therapy
CPT/HCPCS: 36415; 71045; 80053; 84443; 84484; 84702; 85025; 93005; 99285

== ENCOUNTER 2021-01-18 04:03 | Emergency (ER) | payer OTHER ==
[~2021-01-18] VITALS: Ht 157.5 cm; Wt 81.6 kg
--- NOTE | 2021-01-18 04:08 | NUR ---
TO BED AMBULATORY
--- NOTE | 2021-01-18 04:20 | NUR ---
TO BED 6 WITH C/O CHEST PAIN SINCE YESTERDAY. HAS H/O PERICARDITIS X 2. IS AWAKE AND ALERT, SKIN IS WARM AND DRY.
[2021-01-18] MEDS ORDERED: LORazepam 1 MG TAB PO ONE (04:40)
[2021-01-18] MEDS ORDERED: KETOROLAC 30 MG/ML VIAL IM ONE (05:35)
[2021-01-18] MEDS ORDERED: DICYCLOMINE HCL LIQUID 20 MG, ALUMINUM HYD/MAG/SIMETHICONE 30 ML, LIDOCAINE VISCOUS 2% ... PO ONE ×3 (05:35)
[2021-01-18] MEDS ORDERED: ATI.5 PO (05:49)
[2021-01-18] MEDS ORDERED: DICYCLOMINE HCL LIQUID 10 MG/5 ML UDC ONE (05:50)
[2021-01-18] MEDS ORDERED: ALUMINUM HYD/MAG/SIMETHICONE 30 ML UDC ONE (05:50)
[2021-01-18 06:03] VITALS: BP 134/68
== END 2021-01-18 06:03 | disposition home or self-care (01) ==
LOC: MED 04:03
DX: R07.9 Chest pain, unspecified (principal); K21.9 Gastro-esophageal reflux disease without esophagitis; E07.9 Disorder of thyroid, unspecified; I11.9 Hypertensive heart disease without heart failure
CPT/HCPCS: 71045; 96372; 99283; J1885; 93005

== ENCOUNTER 2021-02-05 10:01 | Emergency (ER) | payer OTHER ==
[~2021-02-05] VITALS: Ht 157.5 cm; Wt 81.6 kg
[~2021-02-05 10:01] MED LIST changes: +ATI.5 PO
[2021-02-05 10:04] VITALS: BP 129/89
--- NOTE | 2021-02-05 11:10 | NUR ---
Ambulated to bed 8
--- NOTE | 2021-02-05 11:26 | NUR ---
30/F presents to ED with c/o vaginal bleeding since this morning. Patient states she had her period this month on the , stating she woke up today and had heavy bleeding which is uncommon for her, stating she went through "two pads." Patient states 2/10 cramping pain this morning that has since resolved, states no pain at this time, denies taking anything for pain prior to arrival to ED. Patient states intermittent episodes of dizzines, denies chest pain, sob, nausea, vomiting, diarrhea or dysuria.
--- NOTE | 2021-02-05 11:28 | NUR ---
Labs collected and walked to lab
[2021-02-05 11:39] LABS: BASOPHILS # (AUTO) 0.1 K/uL (0.00-0.22); BASOPHILS % (AUTO) 0.9 % (0.0-2.0); EOSINOPHILS # (AUTO) 0.4 K/uL (0-0.4); HEMOGLOBIN 13.9 g/dL (12.0-16.0); LYMPHOCYTES # (AUTO) 2.4 K/uL (2.5-16.5); LYMPHOCYTES % (AUTO) 32.6 % (20.5-51.1); MEAN CORPUSCULAR HEMOGLOBIN 27 pg (27-31); MEAN CORPUSCULAR HGB CONC 32 g/dL (33-37); MEAN CORPUSCULAR VOLUME 82.6 fL (80-94); MONOCYTES # (AUTO) 0.6 K/uL (0.8-1.0); NEUTROPHILS % (AUTO) 53.5 % (42.2-75.2); PLATELET COUNT (AUTO) 371 K/uL (140-450); RED BLOOD CELL COUNT(AUTO) 5.21 MIL/uL (4.20-5.40); RED CELL DISTRIBUTION WIDTH 14.7 % (11.6-13.7); WHITE BLOOD COUNT (AUTO) 7.4 K/uL (4.8-10.8)
[2021-02-05 11:43] LABS: ANION GAP 10.1 (8-16); CARBON DIOXIDE 28.8 mmol/L (21-32); CREATININE 0.9 mg/dL (0.6-1.3); POTASSIUM 3.9 mmol/L (3.5-5.1)
[2021-02-05] MEDS ORDERED: MEDR10TA PO (12:24)
[2021-02-05 12:32] VITALS: BP 129/89
--- NOTE | 2021-02-05 12:32 | NUR ---
Patient discharged with v/s stable. Written and verbal after care instructions given and explained. Patient alert, oriented and verbalized understanding of instructions. Ambulatory with steady gait. All questions addressed prior to discharge. ID band removed. Patient advised to follow up with PMD. Rx of PROVERA given. Patient educated on indication of medication including possible reaction and side effects. Opportunity to ask questions provided and answered.
== END 2021-02-05 12:32 | disposition home or self-care (01) ==
LOC: MED 10:01
DX: N93.8 Other specified abnormal uterine and vaginal bleeding (principal); J45.909 Unspecified asthma, uncomplicated; K21.9 Gastro-esophageal reflux disease without esophagitis; E07.9 Disorder of thyroid, unspecified; Z98.890 Other specified postprocedural states; Z79.899 Other long term (current) drug therapy
CPT/HCPCS: 36415; 80048; 81002; 81025; 85025; 99283

== ENCOUNTER 2021-06-23 15:55 | Emergency (ER) | payer OTHER ==
[~2021-06-23] VITALS: Ht 157.5 cm; Wt 77.1 kg
[~2021-06-23 15:55] MED LIST changes: +MEDR10TA PO
[2021-06-23 16:03] VITALS: BP 151/90
--- NOTE | 2021-06-23 16:06 | NUR ---
Pt given urine cup and ambulated to lobby with steady gait
[2021-06-23] MEDS ORDERED: ACETAMINOPHEN EXTRA STRENGTH 500 MG TAB PO ONE (16:45)
[2021-06-23 17:50] LABS: BASOPHILS # (AUTO) 0.1 K/uL (0.00-0.22); BASOPHILS % (AUTO) 0.7 % (0.0-2.0); EOSINOPHILS # (AUTO) 0.3 K/uL (0-0.4); EOSINOPHILS % (AUTO) 3.5 % (0.0-4.0); HEMATOCRIT 41.8 % (36-48); HEMOGLOBIN 13.9 g/dL (12.0-16.0); LYMPHOCYTES # (AUTO) 2.5 K/uL (2.5-16.5); LYMPHOCYTES % (AUTO) 29.8 % (20.5-51.1); MEAN CORPUSCULAR HEMOGLOBIN 27 pg (27-31); MEAN CORPUSCULAR HGB CONC 33 g/dL (33-37); MEAN CORPUSCULAR VOLUME 80.8 fL (80-94); MONOCYTES # (AUTO) 0.5 K/uL (0.8-1.0); MONOCYTES % (AUTO) 6.4 % (1.7-9.3); NEUTROPHILS % (AUTO) 59.6 % (42.2-75.2); PLATELET COUNT (AUTO) 372 K/uL (140-450); RED BLOOD CELL COUNT(AUTO) 5.18 MIL/uL (4.20-5.40); RED CELL DISTRIBUTION WIDTH 14.3 % (11.6-13.7); WHITE BLOOD COUNT (AUTO) 8.4 K/uL (4.8-10.8)
[2021-06-23 18:13] LABS: ALBUMIN 3.6 g/dL (3.4-5.0); ANION GAP 12.4 (8-16); CARBON DIOXIDE 29.4 mmol/L (21-32); CREATININE 0.8 mg/dL (0.6-1.3); POTASSIUM 3.8 mmol/L (3.5-5.1); TOTAL BILIRUBIN 0.5 mg/dL (0.0-1.0)
[2021-06-23] MEDS ORDERED: MIRABULK PO (22:15)
[2021-06-23] MEDS ORDERED: DOCU-300 PO (22:15)
[2021-06-23] MEDS ORDERED: PSYL0.4C7 PO (22:15)
[2021-06-23] MEDS ORDERED: ACET-10509 PO (22:17)
--- NOTE | 2021-06-23 22:39 | NUR ---
PT DISCHARGED BY DR. DELEON. ALL INSTRUCTIONS PROVIDED BY DR. DELEON. RX OF TYLENOL, COLACE, MIRALX, AND PSYLLIUM.
== END 2021-06-23 22:39 | disposition home or self-care (01) ==
LOC: MED 15:55
DX: K59.00 Constipation, unspecified (principal); R10.2 Pelvic and perineal pain; N83.201 Unspecified ovarian cyst, right side; R03.0 Elevated blood-pressure reading, without diagnosis of hypertension; J45.909 Unspecified asthma, uncomplicated; K21.9 Gastro-esophageal reflux disease without esophagitis; E07.9 Disorder of thyroid, unspecified; Z98.890 Other specified postprocedural states; Z79.899 Other long term (current) drug therapy
CPT/HCPCS: 36415; 74176; 76856; 80053; 82272; 83690; 84702; 85025; 87045; 87427; 89055; 93976; 99285; Q0092